=== PATIENT | male | born 1995 | race African-American/Black ===

== ENCOUNTER 2020-04-10 15:08 | Emergency (ER) | payer OTHER ==
[2020-04-10] MEDS ORDERED: Lidocaine 1% (PF) 30 ML VIAL ONE (16:41)
[2020-04-10] MEDS ORDERED: Bupivacaine 0.5% 10 ML VIAL ONE (16:45)
[2020-04-10] MEDS ORDERED: Boostrix 0.5 ML (Tdap) VIAL ONE (17:25)
[2020-04-10] MEDS ORDERED: Bacitracin 1 PK ONE (18:11)
== END 2020-04-10 18:29 | disposition home or self-care (01) ==
LOC: ERS 15:08
DX: S61.252A Open bite of right middle finger without damage to nail, initial encounter (principal); W54.0XXA Bitten by dog, initial encounter
CPT/HCPCS: 12001; 90715; J2001; J3490

== ENCOUNTER 2020-04-19 19:50 | Inpatient (IN) | payer OTHER, SELFPAY ==
[2020-04-19] MEDS ORDERED: Piperacillin/Tazobactam 4.5 GM VIAL ONE (22:11)
[2020-04-19 22:12] LABS: #Basophils 0.1 thou/uL (0.0-0.2); #Eosinphils 0.6 thou/uL (0.0-0.7); #Lymphocytes 1.8 thou/uL (1.20-3.40); #Monocytes 0.6 thou/uL (0.11-0.59); #Neutrophils 3.5 thou/uL (1.40-6.50); %Basophils 1.4 % (0.0-1.0); %Eosinophils 8.7 % (0.0-10.0); %Lymphocytes 27.5 % (21.0-51.0); %Monocytes 8.5 % (0.0-10.0); %Neutrophils 53.9 % (42.0-75.0); Hemoglobin 15.3 g/dL (14.0-18.0); Mean Corpuscular HGB CONC 33.4 g/dL (32.0-36.0); Mean Corpuscular Hemoglobin 31.4 pg (27.0-31.0); Mean Platelet Volume 9.9 fL (7.4-10.4); Platelet Count 171 thou/uL (130-400); RBC Distribution Width 12.4 % (11.5-14.5); Red Blood Cell (RBC) Count 4.88 mill/uL (4.70-6.10); White Blood Cell (WBC) Count 6.4 thou/uL (4.8-10.8)
[2020-04-19 22:41] LABS: ALT (SGPT) 67 U/L (8-55); AST (SGOT) 36 U/L (5-34); Albumin 4.4 g/dL (3.5-5.0); Alkaline Phosphatase 78 U/L (40-110); Anion Gap 13 mmol/L (10-20); BUN (Urea Nitrogen) 15 mg/dL (8.9-20.6); Bilirubin, Total 0.3 mg/dL (0.2-1.2); Calc. Creatinine Clearance 0 mL/min (70-130); Carbon Dioxide 26 mmol/L (22-29); Chloride 104 mmol/L (98-107); Globulin 3.2 g/dL (2.4-3.5); Glucose 91 mg/dL (70-105); Potassium 4.4 mmol/L (3.5-5.1); Protein, Total 7.6 g/dL (6.0-8.3); Sodium 139 mmol/L (136-145)
[2020-04-19] MEDS ORDERED: Vancomycin 1 GM/200 ML BAG ONE (22:46)
[2020-04-20] MEDS ORDERED: Acetaminophen 325 MG TAB PO PRN (00:23)
[2020-04-20 04:30] LABS: SARS-CoV-2 PCR by NAA Not Detected (NotDetected)
[2020-04-20] MEDS ORDERED: HYDROcodone/Acetaminophen 5/325 mg Tablet ONE (05:34)
[2020-04-20] MEDS: HYDROcodone/Acetaminophen 5/325 mg Tablet PO PRN ×3 (05:38→20:04)
[2020-04-20] MEDS ORDERED: Piperacillin/Tazobactam 4.5 GM VIAL ONE (05:57)
[2020-04-20] MEDS ORDERED: Piperacillin/Tazobactam 4.5 GM in Sodium Chloride 0.9% 100 ML IVPB SCH ×2 (06:00→16:00)
[2020-04-20 07:29] LABS: #Basophils 0.1 thou/uL (0.0-0.2); #Eosinphils 0.6 thou/uL (0.0-0.7); #Lymphocytes 1.4 thou/uL (1.20-3.40); #Monocytes 0.6 thou/uL (0.11-0.59); #Neutrophils 2.9 thou/uL (1.40-6.50); %Basophils 1.4 % (0.0-1.0); %Eosinophils 11.5 % (0.0-10.0); %Lymphocytes 24.8 % (21.0-51.0); %Monocytes 10.4 % (0.0-10.0); %Neutrophils 51.9 % (42.0-75.0); Hemoglobin 15.7 g/dL (14.0-18.0); Mean Corpuscular HGB CONC 33.8 g/dL (32.0-36.0); Mean Corpuscular Hemoglobin 31.9 pg (27.0-31.0); Mean Corpuscular Volume 94.5 fL (78.0-98.0); Platelet Count 160 thou/uL (130-400); RBC Distribution Width 12.4 % (11.5-14.5); Red Blood Cell (RBC) Count 4.92 mill/uL (4.70-6.10); White Blood Cell (WBC) Count 5.6 thou/uL (4.8-10.8)
[2020-04-20] MEDS: Enoxaparin Sodium 40 MG/0.4 ML SYRINGE SC SCH (07:29)
[2020-04-20 07:35] LABS: Anion Gap 11 mmol/L (10-20); BUN (Urea Nitrogen) 13 mg/dL (8.9-20.6); Calc. Creatinine Clearance 0 mL/min (70-130); Carbon Dioxide 27 mmol/L (22-29); Chloride 103 mmol/L (98-107); Glucose 92 mg/dL (70-105); Potassium 4.4 mmol/L (3.5-5.1); Sodium 137 mmol/L (136-145)
[2020-04-20] MEDS ORDERED: PROPOFOL 200 MG/20 ML VIAL ONE (09:09)
[2020-04-20] MEDS ORDERED: PHENYLEPHRINE-NS 100 MCG/ML 10 ML SYRINGE ONE (09:09)
[2020-04-20] MEDS ORDERED: Lidocaine 1% PF 5 ML VIAL ONE (09:09)
[2020-04-20] MEDS ORDERED: Ondansetron PF 4 MG/2 ML Vial ONE (09:09)
[2020-04-20] MEDS ORDERED: Dexamethasone 20 MG/5 ML VIAL ONE (09:09)
[2020-04-20] MEDS ORDERED: Ketorolac Tromethamine 30 MG/ML VIAL ONE (09:09)
[2020-04-20] MEDS ORDERED: VANCOMYCIN 1.25 GM/250 ML BAG IVPB SCH ×2 (10:00→15:00)
[2020-04-20 11:24] VITALS: BMI 24.3
[2020-04-20] MEDS ORDERED: Fentanyl 100 MCG/2 ML VIAL ONE ×3 (13:10→16:59)
[2020-04-20] MEDS ORDERED: EPINEPHrine 1 MG/ML AMP ONE (13:11)
[2020-04-20] MEDS ORDERED: Bupivacaine 0.25% HCL 30 ML VIAL ONE (13:11)
[2020-04-20] MEDS ORDERED: Lidocaine 1% (PF) 30 ML VIAL ONE (13:11)
[2020-04-20] MEDS ORDERED: Ondansetron HCl/PF 4 MG/2 ML Vial IVP PRN (13:53)
[2020-04-20] MEDS ORDERED: Promethazine HCl 25 MG/ML VIAL SLOW IVP PRN (13:53)
[2020-04-20] MEDS ORDERED: Promethazine HCl 25 MG/ML VIAL IM PRN (13:53)
[2020-04-20] MEDS ORDERED: Meperidine HCl/PF 25 MG/ML VIAL SLOW IVP PRN (13:53)
[2020-04-20] MEDS: VANCOMYCIN 1.25 GM/250 ML BAG 1.25 GM in Premix Bag 1 BAG IVPB SCH (15:38)
[2020-04-20] MEDS ORDERED: Midazolam HCl 2 mg/2 ml Vial ONE (15:44)
[2020-04-20] MEDS ORDERED: Bacitracin Zinc Ointment 30 gm TUBE ONE (16:13)
[2020-04-20] MEDS: Piperacillin/Tazobactam 3.375 GM in Sodium Chloride 0.9% 100 ML IVPB SCH (23:13)
[2020-04-21] MEDS: HYDROcodone/Acetaminophen 5/325 mg Tablet PO PRN ×3 (00:13→16:41)
[2020-04-21] MEDS: VANCOMYCIN 1.25 GM/250 ML BAG 1.25 GM in Premix Bag 1 BAG IVPB SCH ×2 (04:29→16:42)
[2020-04-21] MEDS: Piperacillin/Tazobactam 3.375 GM in Sodium Chloride 0.9% 100 ML IVPB SCH ×3 (05:59→18:32)
[2020-04-21] MEDS: Enoxaparin Sodium 40 MG/0.4 ML SYRINGE SC SCH (09:59)
[2020-04-21] MEDS: Ibuprofen 200 MG TAB PO PRN ×2 (09:59→20:04)
[2020-04-21] MEDS ORDERED: Bacitracin 1 PK TOP PRN (18:04)
[2020-04-21] MEDS: Bacitracin Zinc Ointment 30 gm TUBE TOP PRN (18:24)
[2020-04-22] MEDS: HYDROcodone/Acetaminophen 5/325 mg Tablet PO PRN ×2 (01:12→07:50)
[2020-04-22] MEDS: Piperacillin/Tazobactam 3.375 GM in Sodium Chloride 0.9% 100 ML IVPB SCH ×2 (01:12→05:43)
[2020-04-22 02:33] LABS: Vancomycin, Trough 12.4 ug/mL
[2020-04-22] MEDS ORDERED: Vancomycin 1.5 GRAM/300 ML BAG 1.5 GM in Premix Bag 1 BAG IVPB SCH (03:00)
[2020-04-22] MEDS: Enoxaparin Sodium 40 MG/0.4 ML SYRINGE SC SCH (07:52)
[2020-04-22 08:50] LABS: #Eosinphils 0.5 thou/uL (0.0-0.7); #Lymphocytes 2.1 thou/uL (1.20-3.40); #Monocytes 0.4 thou/uL (0.11-0.59); #Neutrophils 2.4 thou/uL (1.40-6.50); %Basophils 0.8 % (0.0-1.0); %Eosinophils 9.5 % (0.0-10.0); %Lymphocytes 39.1 % (21.0-51.0); %Monocytes 6.8 % (0.0-10.0); %Neutrophils 43.9 % (42.0-75.0); Mean Corpuscular Hemoglobin 32.7 pg (27.0-31.0); Mean Corpuscular Volume 93.5 fL (78.0-98.0); Mean Platelet Volume 9.7 fL (7.4-10.4); Platelet Count 152 thou/uL (130-400); RBC Distribution Width 12.3 % (11.5-14.5); White Blood Cell (WBC) Count 5.4 thou/uL (4.8-10.8)
[2020-04-22 09:03] LABS: Anion Gap 14 mmol/L (10-20); BUN (Urea Nitrogen) 18 mg/dL (8.9-20.6); Calc. Creatinine Clearance 96 mL/min (70-130); Calcium 8.6 mg/dL (7.8-10.44); Carbon Dioxide 24 mmol/L (22-29); Chloride 105 mmol/L (98-107); Glucose 85 mg/dL (70-105); Potassium 4.1 mmol/L (3.5-5.1); Sodium 139 mmol/L (136-145)
[2020-04-22] MEDS: Bacitracin Zinc Ointment 30 gm TUBE TOP PRN (11:42)
[2020-04-22 12:04] VITALS: BP 130/74; TEMP 98.3
== END 2020-04-22 12:04 | disposition home or self-care (01) | DRG 506 ==
LOC: ERS 19:50 → ERHOLD 23:57 → OBSVTOIN 23:57 → 3SE 04-20 09:20
PROVIDERS: ADMIT Student in an Organized Health Care Education/Training Program; ATTEND Internal Medicine
PROC: 0R9W0ZZ Drainage of Right Finger Phalangeal Joint, Open Approach (ICD-10-PCS; principal; 2020-04-20)
DX: M65.841 Other synovitis and tenosynovitis, right hand (principal); J45.909 Unspecified asthma, uncomplicated; Z20.822 Contact with and (suspected) exposure to COVID-19; S62.632A Displaced fracture of distal phalanx of right middle finger, initial encounter for closed fracture; S61.252A Open bite of right middle finger without damage to nail, initial encounter; Z88.8 Allergy status to other drugs, medicaments and biological substances; L03.011 Cellulitis of right finger
CPT/HCPCS: 36415; 80048; 80053; 80202; 83605; 85025; 87040; 87070; 87205; 87635; 96365; 96366; 96367; 96372; 96376; G0378; J0171; J1100; J1650; J1885; J2001; J2250; J2405; J2543; J2704; J3010; J3370; J3490; S0020; U0003; U0005